=== PATIENT | female | born 1985 | race Caucasian/White ===

== ENCOUNTER 2018-11-19 11:32 | Observation (INO) | payer BC, OTHER ==
[~2018-11-19] VITALS: Ht 160 cm; Wt 97.7 kg
[2018-11-19] VITALS (25 sets, daily range): BP systolic 95–129; BP diastolic 48–72; PULSE 50–93; RESP 11–22; Ht 160 cm; Wt 97.7 kg
[2018-11-19] MEDS ORDERED: SOD CHLORIDE 0.9% 1,000 ML IV STA (12:07)
[2018-11-19] MEDS ORDERED: morphine 4 MG/ML VIAL IV STA (12:07)
[2018-11-19] MEDS ORDERED: ONDANSETRON 4 MG INJ IV STA (12:07)
[2018-11-19] MEDS ORDERED: KETOROLAC 30 MG INJ IV STA (14:38)
[2018-11-19] MEDS ORDERED: ONDANSETRON 4 MG INJ IV PRN ×3 (15:30→18:30)
[2018-11-19] MEDS ORDERED: ACETAMINOPHEN 325 MG TAB PO PRN (15:30)
--- NOTE | 2018-11-19 15:42 | ERD ---
ER Documentation Chief Complaint Chief Complaint RUQ PAIN, HX OF GALL STONES HPI 33-year-old female with a history of gallstones presenting with severe right upper quadrant pain for the past 10 days that has been worsening. She has had symptomatic gallstones for a few months, but her symptoms have significantly worsened recently. She states her pain is always there, causing her to have decreased p.o. intake with nausea and vomiting. No fevers or chills. She smokes marijuana to alleviate the pain. She has been prescribed [place] but does not take it. She has had multiple recent visits to the ER for similar symptoms. Today she went to 's office and was evaluated. She was sent here for possible acute cholecystitis. ROS All systems reviewed and are negative except as per history of present illness. Allergies Allergies: Coded Allergies: No Known Allergy (Unverified , 11/19/18) PMhx/Soc Hx Miscellaneous Medical Probl: Yes (GALLSTONES) FmHx Family History: No diabetes Physical Exam Vitals Vital Signs Date Temp Pulse Resp B/P (MAP) Pulse Ox O2 O2 Flow FiO2 Time Delivery Rate 11/19/18 98.2 71 16 117/70 97 11:51 (86) Physical Exam Const: In distress secondary to pain, nontoxic Head: Atraumatic Eyes: Normal Conjunctiva ENT: Normal External Ears, Nose and Mouth. Neck: Full range of motion. No meningismus. Resp: Clear to auscultation bilaterally Cardio: Regular rate and rhythm, no murmurs Abd: Soft, significant right upper quadrant tenderness to palpation with guarding. No rebound. No masses. No McBurney's point tenderness., non distended. Normal bowel sounds Skin: No petechiae or rashes Back: No midline or flank tenderness Ext: No cyanosis, or edema Neur: Awake and alert Psych: Normal Mood and Affect Result Diagram: 11/19/18 1240 11/19/18 1240 Results 24 hrs Laboratory Tests Test 11/19/18 12:31 11/19/18 12:36 11/19/18 12:40 Urine Color YELLOW Urine Clarity SLIGHTLY CLOUDY Urine pH 6.0 Urine Specific [place] 1.013 Urine Ketones TRACE mg/dL Urine Nitrite NEGATIVE mg/dL Urine Bilirubin NEGATIVE mg/dL Urine Urobilinogen NEGATIVE mg/dL Urine Leukocyte Esterase NEGATIVE Michael/ul Urine Microscopic RBC 1 /HPF Urine Microscopic WBC 1 /HPF Urine Squamous Epithelial Cells FEW /HPF Urine Bacteria MODERATE /HPF Urine Mucus FEW /HPF Urine Hemoglobin NEGATIVE mg/dL Urine Glucose NEGATIVE mg/dL Urine Total Protein NEGATIVE mg/dl POC Beta HCG, Qualitative NEGATIVE White Blood Count 10.5 10^3/ul Red Blood Count 4.77 10^6/ul Hemoglobin 12.7 g/dl Hematocrit 37.9 % Mean Corpuscular Volume 79.5 fl Mean Corpuscular Hemoglobin 26.6 pg Mean Corpuscular 33.5 g/dl Hemoglobin Concent Red Cell Distribution Width 14.6 % Platelet Count 311 10^3/UL Mean Platelet Volume 10.7 fl Immature Granulocytes % 0.400 % Neutrophils % 61.0 % Lymphocytes % 28.0 % Monocytes % 7.6 % Eosinophils % 2.4 % Basophils % 0.6 % Nucleated Red Blood Cells % 0.0 /100WBC Immature Granulocytes # 0.040 10^3/ul Neutrophils # 6.4 10^3/ul Lymphocytes # 3.0 10^3/ul Monocytes # 0.8 10^3/ul Eosinophils # 0.3 10^3/ul Basophils # 0.1 10^3/ul Nucleated Red Blood Cells # 0.0 10^3/ul Sodium Level 142 mmol/L Potassium Level 3.7 mmol/L Chloride Level 104 mmol/L Carbon Dioxide Level 32 mmol/L Anion Gap 6 Blood Urea Nitrogen 7 mg/dl Creatinine 0.56 mg/dl Est Glomerular Filtrat > 60 mL/min Rate mL/min Glucose Level 98 mg/dl Calcium Level 9.2 mg/dl Total Bilirubin 0.1 mg/dl Direct Bilirubin 0.00 mg/dl Indirect Bilirubin 0.1 mg/dl Aspartate Amino 26 IU/L Transf (AST/SGOT) Alanine 34 IU/L Aminotransferase (ALT/SGPT) Alkaline Phosphatase 94 IU/L Total Protein 7.5 g/dl Albumin 4.3 g/dl Globulin 3.20 g/dl Albumin/Globulin Ratio 1.34 Lipase 47 U/L Current Medications Medications Dose Sig/Mary Jane Start Time Status Last (Trade) Ordered Route PRN Stop Time Admin Dose Reason Admin Sodium 1,000 ml @ Q1H STAT 11/19/18 DC 11/19/18 Chloride 1,000 mls/hr IV 12:07 12:38 11/19/18 13:06 Morphine 4 mg ONCE STAT 11/19/18 DC 11/19/18 Sulfate IV 12:07 12:38 (morphine) 11/19/18 12:09 Ondansetron 4 mg ONCE STAT 11/19/18 DC 11/19/18 HCl (Zofran IV 12:07 12:38 Inj) 11/19/18 12:09 Ketorolac 30 mg ONCE STAT 11/19/18 DC 11/19/18 Tromethamine IV 14:38 14:43 (Toradol) 11/19/18 14:39 Ondansetron 4 mg BRIDGE ORDER 11/19/18 HCl (Zofran PRN IV 15:30 Inj) NAUSEA/VOMITI 11/20/18 15:29 NG 650 mg ER BRIDGE 11/19/18 Acetaminophen PRN PO 15:30 (Tylenol .MILD PAIN 11/20/18 15:29 Tab) 1-3 OR TEMP Procedures/MDM EMERGENT LABS AND DIAGNOSTIC STUDIES: Lab Results above were reviewed and interpreted by me. CBC: no anemia or evidence of infection CMP: No evidence of electrolyte abnormality, renal failure, hypoglycemia, liver failure, or biliary obstruction Lipase: no evidence of pancreatitis Radiology Results as interpreted by Radiology below were reviewed by Usha Castro MD: Ultrasound gallbladder shows no evidence of acute cholecystitis or biliary obstruction Initial Nursing notes reviewed. Previous Medical Records requested via the Electronic Health Record. EMERGENCY DEPARTMENT COURSE / MEDICAL DECISION MAKING: Patient presenting with symptomatic cholelithiasis versus acute cholecystitis by exam. She is afebrile with stable vitals. Labs did not show any significant abnormalities. Low suspicion for choledocholithiasis but this does remain on differential. No evidence of pancreatitis. She was given pain medications with only minimal improvement of her pain. I feel the patient requires admission for cholecystectomy as her symptoms are worsening and not controlled. Accepting Care Team: Current data and ongoing care discussed. Time: Time of admission Primary Provider: Dr. Ellis Consulting: Dr. Jackson Outstanding Data: none Departure Diagnosis: Primary Impression: Symptomatic cholelithiasis Additional Impression: Intractable abdominal pain Condition: DILCIA Thornton MD Nov 19, 2018 15:42
[2018-11-19] MEDS ORDERED: SOD CHLORIDE 0.9% 1,000 ML IV SCH (15:52)
[2018-11-19] MEDS ORDERED: NACL 0.9% 3 ML SYG IV SCH (16:00)
[2018-11-19] MEDS ORDERED: morphine 4 MG/ML VIAL IV PRN (16:00)
--- NOTE | 2018-11-19 16:17 | HP ---
Date/Time of Note Date/Time of Note DATE: 11/19/18 TIME: 16:08 Assessment/Plan VTE Prophylaxis Pharmacological prophylaxis: NA/contraindicated Pharm contraindication: surgical contra Lines/Catheters IV Catheter Type (from Nrsg): Peripheral IV Assessment/Plan Assessment/Plan 33 yo obese woman no major PMH presents with symptomatic cholelithiasis #Cholelithiasis #Abdominal pain #PO intolerance - Symptoms likely due to symptomatic cholelithiasis with possible chronic cholecystitis - Less likely nephrolithiasis (UA bland), pancreatitis (negative lipase) - Agree with lap vs open cholecystectomy. Dr. Jackson consulted. - NPO, IV fluids, opioid analgesics - Despite her size, patient reports ability to exercise >4 METS without angina or dyspnea - She is medically optimized to proceed to surgery with no further cardiac workup. #Hematemesis #Hematochezia - Per history, these likely represent rebeka-jorge tears from excessive vomiting and hemorrhoids/anal fissues, respectively - Will check iron panel - Very low suspicion for occult GI bleed. Will not pursue further workup at this time. #Dysuria - UA negative for leuk esterase or nitrates Result Diagram: 11/19/18 1240 11/19/18 1240 HPI/ROS Admit Date/Time Admit Date/Time Nov 19, 2018 Hx of Present Illness Ms. Sampson is an obese 33 yo woman who presents with acute on chronic abdominal pain. Symptoms started about 2 months ago with aching RUQ pain, worsening with meals, rarely associated with nausea and vomiting. She went to the [facility] emergency department and was diagnosed with symptomatic cholelithiasis and she was instructed to get outpatient surgery. Since then she has struggled to get i nsurance authorization for the surgery. The pain has continued. She has been smoking medical cannabis to control the pain; does not like [place]. For about the past two weeks she reports almost total PO intolerance to solids and liquids with frequent vomiting. The pain now radiates from the RUQ to the R flank and R back. She says it feels like contractions similar to labor. She reports 20 lbs weight loss during this time. She reports dehydration and severe constipation during this time. Last bowel movement was 3 days ago, rock hard, and had some bright red blood afterwards. Also had several episodes of emesis on Saturday about 3 days ago. Last episode of emesis was slightly blood-streaked. Also reports occasional burning dysuria over the past few days. Of note, she had a miscarriage several months before symptoms began. She does run 5ks and denies any dyspnea or angina on exertion prior to the onset of above symptoms. In the ED she presented afebrile, vitals unremarkable. Labs unremarkable. US showed cholelithiasis without e/o cholecystitis. ROS Denies fever, chills, night sweats, fatigue, headache, vision changes, chest pain/pressure/palpitations, dyspnea, cough, diarrhea, hematuria. PMH/Family/Social Past Medical History Anxiety with panic attacks. Medications Current Medications Ondansetron HCl (Zofran Inj) 4 mg BRIDGE ORDER PRN IV NAUSEA/VOMITING; Start 11/19/18 at 15:30; Stop 11/20/18 at 15:29 Acetaminophen (Tylenol Tab) 650 mg ER BRIDGE PRN PO .MILD PAIN 1-3 OR TEMP; Start 11/19/18 at 15:30; Stop 11/20/18 at 15:29 Sodium Chloride 1,000 ml @ 75 mls/hr [id number] IV ; Start 11/19/18 at 15:52 IV Flush (NS 3 ml) 3 ml PER PROTOCOL IV ; Start 11/19/18 at 16:00 Ondansetron HCl (Zofran Inj) 4 mg Q6H PRN IV NAUSEA/VOMITING; Start 11/19/18 at 16:00 Morphine Sulfate (morphine) 4 mg Q4H PRN IV .SEVERE PAIN 7-10; Start 11/19/18 at 16:00 Pantoprazole (Protonix Iv) 40 mg DAILY@06 IV ; Start 11/20/18 at 06:00 Coded Allergies: No Known Allergy (Unverified , 11/19/18) Past Surgical History Appendectomy in in 2017 colonoscopy and EGD 10-12 years ago for "bowel problems" and GERD. Social History Alcohol Use: occasionally Smoking Status: Never smoker Drug Use: marijuana (daily) Exam/Review of Systems Vital Signs Vitals Vital Signs Date Temp Pulse Resp B/P (MAP) Pulse Ox O2 O2 Flow FiO2 Time Delivery Rate 11/19/18 98.2 71 16 117/70 97 11:51 (86) Exam Exam Gen: Obese woman well groomed in considerable discomfort. Eyes: PERRL, no icterus HEENT: Moist mucous membranes, no pharyngeal erythema Neck: Mildly anterior tender to palpation Card: Regular rate and rhythm, no murmurs Pulm: Clear to auscultation bilaterally Abd: Obese, soft, epigastric and RUQ tenderness to moderate palpation, positive montelongo's sign, no rebound tenderness Back: Bilateral CVA nontender to palpation. Ext: No cyanosis/clubbing/edema Skin: warm, dry, well perfused. EDEL HARDING MD Nov 19, 2018 16:17
--- NOTE | 2018-11-19 16:33 | PREAC ---
Date/Time of Note Date/Time of Note DATE: 11/19/18 TIME: 16:32 Anesthesia Eval and Record Evaluation Time Pre-Procedure Interview DATE: 11/19/18 TIME: 16:32 Age 33 Sex female NPO: 8 hrs Preoperative diagnosis cholelithiasis Planned procedure laparoscopic cholecystectomy Past Medical History Past Medical History: Includes GI: Obesity Surgery & Anesthesia Issues No known issue Meds Anticoagulation: No Beta Nicholas within 24 hr: No Reason Beta Nicholas not given: Pt. not on B-Nicholas Current Medications Ondansetron HCl (Zofran Inj) 4 mg BRIDGE ORDER PRN IV NAUSEA/VOMITING; Start 11/19/18 at 15:30; Stop 11/20/18 at 15:29 Acetaminophen (Tylenol Tab) 650 mg ER BRIDGE PRN PO .MILD PAIN 1-3 OR TEMP; Start 11/19/18 at 15:30; Stop 11/20/18 at 15:29 Sodium Chloride 1,000 ml @ 75 mls/hr [id number] IV Last administered on 11/19/18at 16:20; Admin Dose 75 MLS/HR; Start 11/19/18 at 15:52 IV Flush (NS 3 ml) 3 ml PER PROTOCOL IV ; Start 11/19/18 at 16:00 Ondansetron HCl (Zofran Inj) 4 mg Q6H PRN IV NAUSEA/VOMITING; Start 11/19/18 at 16:00 Morphine Sulfate (morphine) 4 mg Q4H PRN IV .SEVERE PAIN 7-10; Start 11/19/18 at 16:00 Pantoprazole (Protonix Iv) 40 mg DAILY@06 IV ; Start 11/20/18 at 06:00 Meds reviewed: Yes Allergies Coded Allergies: No Known Allergy (Unverified , 11/19/18) Allergies Reviewed: Yes Labs/Studies Labs Reviewed: Reviewed by anesthesiologist Result Diagram: 11/19/18 1240 11/19/18 1240 Laboratory Tests 11/19/18 12:40 test: Negative Pre-procedure Exam Last vitals Vital Signs Date Temp Pulse Resp B/P (MAP) Pulse Ox O2 O2 Flow FiO2 Time Delivery Rate 11/19/18 99.4 83 16 114/72 98 Room Air 16:28 (86) Airway: Adequate mouth opening, Adequate thyromental dist Mallampati: Mallampati II Teeth: Normal Lung: Normal Heart: Normal ASA Physical Status ASA physical status: 2 Emergency: None Planned Anesthetic General/MAC: ETT Nerve block: TAP (bilateral) Planned Pain Management Single shot nerve block, Parenteral pain med Pre-operative Attestations Prior to commencing anesthesia and surgery, the patient was re-evaluated, there was verification of: *The patient's identity *The results of appropriate recent lab work and preoperative vital signs *The above evaluation not changing prior to induction *Anesthetic plan, risk benefits, alternative and complications discussed with patient/family; questions answered; patient/family understands, accepts and wishes to proceed. ROSE MARY MOODY MD Nov 19, 2018 16:33
[2018-11-19] MEDS ORDERED: BUPIVACAINE 0.5%/EPI (SDV) 30 ML INJ ONE (16:52)
[2018-11-19] MEDS ORDERED: LIDOCAINE 2% (MDV) 20 ML INJ ONE (16:52)
[2018-11-19] MEDS ORDERED: MIDAZOLAM 1 MG/ML 2 ML INJ ONE (16:53)
[2018-11-19] MEDS ORDERED: ROCURONIUM 50 MG INJ ONE ×2 (16:54→17:32)
[2018-11-19] MEDS ORDERED: LIDOCAINE 2% (SDV) 5 ML INJ ONE (16:54)
[2018-11-19] MEDS ORDERED: SUCCINYLCHOLINE CHLORIDE 100 MG/5 ML SYG IV ONE (16:54)
[2018-11-19] MEDS ORDERED: ROPIVACAINE 0.5 % 30 ML VIAL ONE (16:54)
[2018-11-19] MEDS ORDERED: FENTAnyl 50 MCG/ML VIAL ONE (16:54)
[2018-11-19] MEDS ORDERED: PROPOFOL 20 ML ONE (16:54)
--- NOTE | 2018-11-19 17:09 | CONS ---
Assessment/Plan Assessment/Plan Assessment/Plan (Daily) Recurrent symptomatic cholelithiasis, possible cholecystitis Discussed proceeding with laparoscopic cholecystectomy, possible open, possible cholangiogram on this admission. Benefits, risks, alternatives discussed in detail. All questions answered. The patient elects to proceed. Consultation Date/Type/Reason Admit Date/Time Nov 19, 2018 Date of Consultation: Nov 19, 2018 Date/Time of Note DATE: 11/19/18 TIME: 17:07 Hx of Present Illness The patient is a 33-year-old female with recurrent attacks of epigastric pain associated with nausea and emesis. Her pain radiates to the back. She has had approximately 5 attacks since her in 2017. She presented to the surgeon's office today with significant symptoms. She was sent to the ER. Patient states she has had a minor fever. She has been recommended to have her gallbladder out in the past. She had a tach starting before but they stopped during her . 14 point review of systems was performed. Pertinent negatives and positives per HPI per Past Medical History Medical History: GERD Medications Current Medications Ondansetron HCl (Zofran Inj) 4 mg BRIDGE ORDER PRN IV NAUSEA/VOMITING; Start 11/19/18 at 15:30; Stop 11/20/18 at 15:29 Acetaminophen (Tylenol Tab) 650 mg ER BRIDGE PRN PO .MILD PAIN 1-3 OR TEMP; Start 11/19/18 at 15:30; Stop 11/20/18 at 15:29 Sodium Chloride 1,000 ml @ 75 mls/hr [id number] IV Last administered on 11/19/18at 16:20; Admin Dose 75 MLS/HR; Start 11/19/18 at 15:52 IV Flush (NS 3 ml) 3 ml PER PROTOCOL IV ; Start 11/19/18 at 16:00 Ondansetron HCl (Zofran Inj) 4 mg Q6H PRN IV NAUSEA/VOMITING; Start 11/19/18 at 16:00 Morphine Sulfate (morphine) 4 mg Q4H PRN IV .SEVERE PAIN 7-10; Start 11/19/18 at 16:00 Pantoprazole (Protonix Iv) 40 mg DAILY@06 IV ; Start 11/20/18 at 06:00 Allergies: Coded Allergies: No Known Allergy (Unverified , 11/19/18) Past Surgical History Past Surgical Hx: other () Family History Significant Family History: no pertinent family hx Social History Alcohol Use: occasionally Smoking Status: Never smoker Drug Use: marijuana (daily) Exam/Review of Systems Exam Vitals Vital Signs Date Temp Pulse Resp B/P (MAP) Pulse Ox O2 O2 Flow FiO2 Time Delivery Rate 11/19/18 99.4 83 16 114/72 98 Room Air 16:28 (86) Constitutional: alert, oriented, well developed, obese Psych: no complaints Head: normocephalic Eyes: nl conjunctiva, nl lids ENMT: nl external ears & nose, nl lips & teeth Neck: supple Respiratory: clear to auscultation Cardiovascular: regular rate and rhythm Gastrointestinal: soft, other (Nondistended, some epigastric tenderness) Musculoskeletal: nl extremities to inspection Extremities: normal pulses Neurological: INSPECTOR GLASS OR MIRROR II-XII intact, nl mental status, nl speech Skin: nl turgor Lymph: nl lymph nodes Results Result Diagram: 11/19/18 1240 11/19/18 1240 Results 24hrs Laboratory Tests Test 11/19/18 12:31 11/19/18 12:36 11/19/18 12:40 Urine Color YELLOW Urine Clarity SLIGHTLY CLOUDY A Urine pH 6.0 Urine Specific [place] 1.013 Urine Ketones TRACE A Urine Nitrite NEGATIVE Urine Bilirubin NEGATIVE Urine Urobilinogen NEGATIVE Urine Leukocyte Esterase NEGATIVE Urine Microscopic RBC 1 Urine Microscopic WBC 1 Urine Squamous FEW Epithelial Cells Urine Bacteria MODERATE Urine Mucus FEW A Urine Hemoglobin NEGATIVE Urine Glucose NEGATIVE Urine Total Protein NEGATIVE POC Beta HCG, Qualitative NEGATIVE White Blood Count 10.5 Red Blood Count 4.77 Hemoglobin 12.7 Hematocrit 37.9 Mean Corpuscular Volume 79.5 L Mean Corpuscular Hemoglobin 26.6 L Mean Corpuscular 33.5 Hemoglobin Concent Red Cell Distribution Width 14.6 H Platelet Count 311 Mean Platelet Volume 10.7 H Immature Granulocytes % 0.400 Neutrophils % 61.0 Lymphocytes % 28.0 Monocytes % 7.6 Eosinophils % 2.4 Basophils % 0.6 Nucleated Red Blood Cells % 0.0 Immature Granulocytes # 0.040 H Neutrophils # 6.4 Lymphocytes # 3.0 H Monocytes # 0.8 Eosinophils # 0.3 Basophils # 0.1 Nucleated Red Blood Cells # 0.0 Sodium Level 142 Potassium Level 3.7 Chloride Level 104 Carbon Dioxide Level 32 H Anion Gap 6 Blood Urea Nitrogen 7 Creatinine 0.56 Est Glomerular Filtrat > 60 Rate mL/min Glucose Level 98 Calcium Level 9.2 Total Bilirubin 0.1 L Direct Bilirubin 0.00 Indirect Bilirubin 0.1 Aspartate Amino 26 Transf (AST/SGOT) Alanine 34 Aminotransferase (ALT/SGPT) Alkaline Phosphatase 94 Total Protein 7.5 Albumin 4.3 Globulin 3.20 Albumin/Globulin Ratio 1.34 Lipase 47 Imaging Imaging Patient: SAGRARIO GONZALEZ : 1985 Age: 33 Sex: F [id number] DOS: 11/19/18 0000 Ordering MD: VITOR SHARP PA-C Location: [facility] Room/Bed: PROCEDURE: Right upper quadrant ultrasound CLINICAL INDICATION: Abdominal pain TECHNIQUE: Multiple real-time images were acquired of the patient's abdomen and right retroperitoneum utilizing a high resolution transducer. COMPARISON: None FINDINGS: The liver is normal in echogenicity and measures 15.1 cm. No focal hepatic masses are seen. The gallbladder is physiologically distended. There are multiple calcified gallstones. There is no gallbladder wall thickening or pericholecystic fluid. The intra and extrahepatic bile ducts are normal in caliber. The common bile duct measures 2.7 mm. Pancreas and aorta are not visualized due to overlying bowel gas. Survey views of the right kidney demonstrate no evidence of hydronephrosis or renal calculi. The right kidney measures 10.9 cm. IMPRESSION: 1. Cholelithiasis without evidence of acute cholecystitis RPTAT: HH .Jono Fierro MD, MD Date Time Electronically viewed and signed by .Jono Fierro MD, MD on 11/19/2018 13:16 .W/ CC: PA SHARP PA-C [id number] Medications Medication Current Medications Ondansetron HCl (Zofran Inj) 4 mg BRIDGE ORDER PRN IV NAUSEA/VOMITING; Start 11/19/18 at 15:30; Stop 11/20/18 at 15:29 Acetaminophen (Tylenol Tab) 650 mg ER BRIDGE PRN PO .MILD PAIN 1-3 OR TEMP; Start 11/19/18 at 15:30; Stop 11/20/18 at 15:29 Sodium Chloride 1,000 ml @ 75 mls/hr [id number] IV Last administered on 11/19/18at 16:20; Admin Dose 75 MLS/HR; Start 11/19/18 at 15:52 IV Flush (NS 3 ml) 3 ml PER PROTOCOL IV ; Start 11/19/18 at 16:00 Ondansetron HCl (Zofran Inj) 4 mg Q6H PRN IV NAUSEA/VOMITING; Start 11/19/18 at 16:00 Morphine Sulfate (morphine) 4 mg Q4H PRN IV .SEVERE PAIN 7-10; Start 11/19/18 at 16:00 Pantoprazole (Protonix Iv) 40 mg DAILY@06 IV ; Start 11/20/18 at 06:00 TRISTAN PINEDO MD Nov 19, 2018 17:09
--- NOTE | 2018-11-19 17:12 | OPR ---
Date/Time of Note Date/Time of Note DATE: 11/19/18 TIME: 17:10 Operative Report Preoperative Diagnosis Cholelithiasis, symptomatic Postoperative Diagnosis Same Operation/Procedure Performed Laparoscopic cholecystectomy Surgeon see signature line [employer] [employer] [place] None Anesthesia Type: general Anesthesiologist: ROSE MARY MOODY MD Estimated Blood Loss: minimal Transfusion none Specimen Gallbladder Grafts/Implants none Complications none Pt Condition Post Procedure: stable Disposition: PACU Indications The patient is a 33-year-old female with recurrent symptomatic cholelithiasis. Ultrasound revealed stones. Normal LFTs She has had prior visits to the ER for similar symptoms. I discussed proceeding with a laparoscopic, possible open, cholecystectomy, possible cholangiogram. All benefits, risks, alternatives discussed in detail. All questions were answered. The patient elects to proceed. Procedure Description The patient was brought to operative room placed supine on the table. After preop antibiotics and SCDs were applied, the patient was intubated. The abdomen was cleaned, prepped, draped in usual sterile fashion. All incisions were infiltrated with 1% lidocaine with epi and half percent Marcaine prior to incision. An 11 mm incision was made in the umbilicus. Using a laparoscope obtained trocar, the abdomen was entered under direct vision insufflated 50 mils of mercury CO2. The following trochars in place direct vision: The right lower quadrant 5 mm, a right upper quadrant 5 mm, and a subxiphoid 5 mm. The 5 mm umbilical trocar was exchanged 11 mm and direct vision. The gallbladder was grasped at the fundus and retracted over the liver. There were omental adhesions attached to the gallbladder which were dissected free with electrocautery. I identified Chidi's pouch. The peritoneum underneath Ramesh's was scored medially and laterally. I was then able to dissect out and skeletonized the cystic duct and artery. I dissected the gallbladder off the cystic plate of the liver. I now had my critical view of safety where I saw my duct and artery with no intervening structures. The duct and artery were then clipped twice proximally and once distally individually and divided. The gallbladder was then removed from the gallbladder fossa with electrocautery and placed in Endo Catch bag. I irrigated and aspirated out the right upper quadrant until effluent was clear. I visualized the gallbladder fossa. It was hemostatic. There was no evidence of bleeding or bile staining. At this point, I desufflated the abdomen and removed all trochars. The fascia of the 12 mm trocar site was closed with 0 Vicryl. Skin incisions were closed for Monocryl, Mastisol, and Steri-Strips. A 2 x 2 gauze and Tegaderm was placed over the umbilicus region only. The patient tired procedure well. She was extubated in the OR and transferred to the recovery room in stable condition. TRISTAN PINEDO MD Nov 19, 2018 17:12
--- NOTE | 2018-11-19 17:12 | SIPON ---
Date/Time of Note Date/Time of Note DATE: 11/19/18 TIME: 17:12 Operative Report Preoperative Diagnosis Symptomatic cholelithiasis Postoperative Diagnosis Same Operation/Procedure Performed Laparoscopic cholecystectomy Surgeon see signature line residential living assistant None Anesthesia: general Estimated blood loss: minimal Transfusion Required none Specimen Gallbladder Grafts/Implants none Complications none TRISTAN PINEDO MD Nov 19, 2018 17:12
[2018-11-19] MEDS ORDERED: FAMOTIDINE 20 MG INJ ONE (17:28)
[2018-11-19] MEDS ORDERED: CEFAZOLIN 1 GM INJ ONE (17:28)
[2018-11-19] MEDS ORDERED: DEXAMETHASONE 4 MG/ML 5 ML INJ ONE (17:28)
[2018-11-19] MEDS ORDERED: ONDANSETRON 4 MG INJ ONE (17:28)
[2018-11-19] MEDS ORDERED: KETOROLAC 30 MG INJ ONE (17:52)
[2018-11-19] MEDS ORDERED: SUGAMMADEX SODIUM 200 MG/2 ML VIAL IV ONE ×2 (17:54→18:10)
[2018-11-19] MEDS ORDERED: HYDROmorphONE 1 MG/5 ML IV SYRINGE IV ONE ×2 (18:20→18:27)
--- NOTE | 2018-11-19 18:24 | PAC ---
Date/Time of Note Date/Time of Note DATE: 11/19/18 TIME: 18:20 Post-Anesthesia Notes Post-Anesthesia Note Last documented vital signs Vital Signs Date Temp Pulse Resp B/P (MAP) Pulse Ox O2 O2 Flow FiO2 Time Delivery Rate 11/19/18 99.4 83 16 114/72 98 Room Air 16:28 (86) Activity: WNL Respiratory function: WNL Cardiovascular function: WNL Mental status: Baseline Pain reasonably controlled: Yes Hydration appropriate: Yes Nausea/Vomiting absent: Yes Comments BP: 115/74 HR: 84 RR: 15 SaO2: 100% T: 98 ROSE MARY MOODY MD Nov 19, 2018 18:24
[2018-11-19] MEDS ORDERED: FENTAnyl 50 MCG/ML VIAL IV PRN ×3 (18:30)
[2018-11-19] MEDS ORDERED: MEPERIDINE 25 MG INJ IV PRN (18:30)
[2018-11-19] MEDS ORDERED: OXYCODONE/ACETAMINOPHEN (5/325) TAB PO PRN ×2 (18:30)
[2018-11-19] MEDS ORDERED: LABETALOL HCL 20MG INJ IV PRN (18:30)
[2018-11-19] MEDS ORDERED: HYDROmorphONE 1 MG/5 ML IV SYRINGE IV PRN ×2 (18:30)
[2018-11-19] MEDS ORDERED: hydrALAzine 20 MG INJ IV PRN (18:30)
[2018-11-19] MEDS ORDERED: PROCHLORPERAZINE 10 MG INJ IV PRN (18:30)
[2018-11-19] MEDS ORDERED: MIDAZOLAM 1 MG/ML 2 ML INJ IV PRN (18:30)
[2018-11-19] MEDS ORDERED: DIPHENHYDRAMINE 50 MG INJ IV PRN (18:30)
[2018-11-19] MEDS ORDERED: EPHEDrine SULFATE 50 MG/5 ML SYG IV PRN (18:30)
[2018-11-19] MEDS: HYDROmorphONE 1 MG/5 ML IV SYRINGE IV PRN ×3 (19:31→19:45)
[2018-11-20] MEDS ORDERED: PANTOPRAZOLE 40 MG INJ IV SCH (06:00)
--- NOTE | 2018-11-20 15:53 | DS ---
Date/Time of Note Date/Time of Note DATE: 11/20/18 TIME: 15:49 Discharge Summary Admission/Discharge Info Admit Date/Time Nov 19, 2018 at 15:20 Discharge Date/Time Nov 19, 2018 at 20:23 Discharge Diagnosis Symptomatic cholelithiasis Patient Condition: Good Consults Dr. Jackson, general surgery. Procedures Laparoscopic cholecystectomy Hx of Present Illness Ms. Sampson is an obese 33 yo woman who presents with acute on chronic abdominal pain. Symptoms started about 2 months ago with aching RUQ pain, worsening with meals, rarely associated with nausea and vomiting. She went to the [place] emergency department and was diagnosed with symptomatic cholelithiasis and she was instructed to get outpatient surgery. Since then she has struggled to get insurance authorization for the surgery. The pain has continued. She has been smoking medical cannabis to control the pain; does not like [place]. For about the past two weeks she reports almost total PO intolerance to solids and liquids with frequent vomiting. The pain now radiates from the RUQ to the R flank and R back. She says it feels like contractions similar to labor. She reports 20 lbs weight loss during this time. She reports dehydration and severe constipation during this time. Last bowel movement was 3 days ago, rock hard, and had some bright red blood afterwards. Also had several episodes of emesis on Saturday about 3 days ago. Last episode of emesis was slightly blood-streaked. Also reports occasional burning dysuria over the past few days. Of note, she had a miscarriage several months before symptoms began. She does run 5ks and denies any dyspnea or angina on exertion prior to the onset of above symptoms. In the ED she presented afebrile, vitals unremarkable. Labs unremarkable. US showed cholelithiasis without e/o cholecystitis. Hospital Course She was taken to the OR for lap ijeoma which was uneventful. Postoperative she was awake and doing well. She was discharged home from the PACU in good condition. Primary Care Provider Not On Staff Doctor Time spent on discharge: > 30 minutes EDEL HARDING MD Nov 20, 2018 15:53
== END 2018-11-19 20:23 | disposition home or self-care (01) ==
LOC: FTE 11:32 → REC 15:20 → UNDOADMOB 15:20 → FTE 16:30
PROVIDERS: ADMIT Internal Medicine; ATTEND Internal Medicine
DX: K80.10 Calculus of gallbladder with chronic cholecystitis without obstruction (principal); K92.0 Hematemesis; R30.0 Dysuria; K21.9 Gastro-esophageal reflux disease without esophagitis
CPT/HCPCS: 47562; 76705; 80053; 81001; 81025; 83690; 85025; 88304; C9113; G0378; J0690; J0780; J1170; J1885; J2250; J2270; J2405; J2795; J3010; J7030; 81003; 96361; 96374; 96375; J1100

== ENCOUNTER 2018-11-23 03:35 | Inpatient (IN) | payer OTHER ==
[~2018-11-23] VITALS: Ht 165.1 cm; Wt 96.5 kg
[2018-11-23] MEDS ORDERED: NACL 0.9% 3 ML SYG IV SCH (07:30)
[2018-11-23] MEDS ORDERED: ACETAMINOPHEN 325 MG TAB PO PRN (07:30)
[2018-11-23] MEDS ORDERED: ONDANSETRON 4 MG TAB PO PRN (07:30)
[2018-11-23] MEDS: morphine 2 MG INJ IV PRN ×4 (07:44→19:45)
[2018-11-23 08:00] VITALS: BP 113/69; PULSE 63; RESP 18
[2018-11-23] MEDS: SOD CHLORIDE 0.9% 1,000 ML IV SCH ×2 (08:25→20:35)
--- NOTE | 2018-11-23 09:14 | CONS ---
Assessment/Plan Assessment/Plan Assessment/Plan (Daily) Abdominal wall hematoma status post lap ijeoma Hemodynamically stable H&H this afternoon and then later this evening. Check PT /PTT today CT scan reviewed. There is some fluid in the gallbladder fossa but this is small. Drop in hematocrit is more likely related to abdominal wall hematoma. Bleeding is likely stopped based on hemodynamic stability. Consultation Date/Type/Reason Admit Date/Time Nov 23, 2018 at 07:08 Date/Time of Note DATE: 11/23/18 TIME: 09:12 Hx of Present Illness The patient is a 33-year-old female status post uncomplicated laparoscopic cholecystectomy on November 19. She was discharged home on day of surgery. She had been doing well until Saturday morning where she noticed a lot of swell ing and discoloration around her bellybutton. She was also concerned about some drainage. She presented to the ER at [facility]. Her hemoglobin was [address] showed some fluid in the gallbladder fossa, most likely representing hematoma. She was transferred back to [facility]. Past Medical History Medical History: GERD, other (Morbid obesity) Medications Current Medications Sodium Chloride 1,000 ml @ 75 mls/hr [id number] IV Last administered on 11/23/18at 08:25; Admin Dose 75 MLS/HR; Start 11/23/18 at 07:15 IV Flush (NS 3 ml) 3 ml PER PROTOCOL IV ; Start 11/23/18 at 07:30 Ondansetron HCl (Zofran Tab) 4 mg Q6H PRN PO NAUSEA/VOMITING; Start 11/23/18 at 07:30 Acetaminophen (Tylenol Tab) 650 mg Q6H PRN PO .PAIN 1-3 OR TEMP; Start 11/23/18 at 07:30 Morphine Sulfate (morphine) 2 mg Q4H PRN IV .SEVERE PAIN 7-10 Last administered on 11/23/18at 07:44; Admin Dose 2 MG; Start 11/23/18 at 07:30 Allergies: Coded Allergies: No Known Allergy (Unverified , 11/23/18) Past Surgical History Past Surgical Hx: other Social History Alcohol Use: rarely Smoking Status: Never smoker Exam/Review of Systems Exam Vitals Vital Signs Date Temp Pulse Resp B/P (MAP) Pulse Ox O2 O2 Flow FiO2 Time Delivery Rate 11/23/18 98.1 63 18 113/69 99 Room Air 08:00 (84) Constitutional: alert, oriented, well developed Head: normocephalic, atraumatic Eyes: nl conjunctiva, EOMI, nl lids ENMT: nl external ears & nose Neck: supple, non-tender Respiratory: clear to auscultation, normal air movement Cardiovascular: regular rate and rhythm, nl pulses Gastrointestinal: soft, other (, Nondistended, some tenderness and ecchymosis around umbilical incision site.) Extremities: normal pulses Neurological: RELINER II-XII intact, nl mental status, nl speech, nl strength Skin: nl turgor Results Result Diagram: 11/23/18 0745 11/23/18 0745 Results 24hrs Laboratory Tests Test 11/23/18 07:45 White Blood Count 9.3 Red Blood Count 2.79 #L Hemoglobin 7.6 #L Hematocrit 22.8 #L Mean Corpuscular Volume 81.7 L Mean Corpuscular Hemoglobin 27.2 L Mean Corpuscular Hemoglobin Concent 33.3 Red Cell Distribution Width 14.7 H Platelet Count 228 # Mean Platelet Volume 11.4 H Immature Granulocytes % 0.500 H Neutrophils % 71.1 Lymphocytes % 17.8 Monocytes % 7.9 Eosinophils % 2.2 Basophils % 0.5 Nucleated Red Blood Cells % 0.0 Immature Granulocytes # 0.050 H Neutrophils # 6.6 Lymphocytes # 1.7 Monocytes # 0.7 Eosinophils # 0.2 Basophils # 0.1 Nucleated Red Blood Cells # 0.0 Prothrombin Time 13.5 Prothrombin Time Ratio 1.1 INR International Normalized Ratio 1.02 Activated Partial Thromboplast Time 30.9 Sodium Level 140 Potassium Level 3.0 L Chloride Level 111 H Carbon Dioxide Level 19 L Anion Gap 10 Blood Urea Nitrogen 5 L Creatinine 0.47 Est Glomerular Filtrat Rate mL/min > 60 Glucose Level 91 Calcium Level 8.2 L Total Bilirubin 0.3 Direct Bilirubin 0.00 Indirect Bilirubin 0.3 Aspartate Amino Transf (AST/SGOT) 44 Alanine Aminotransferase (ALT/SGPT) 44 Alkaline Phosphatase 99 Total Protein 6.4 Albumin 3.6 Globulin 2.80 Albumin/Globulin Ratio 1.28 Medications Medication Current Medications Sodium Chloride 1,000 ml @ 75 mls/hr [id number] IV Last administered on 11/23/18at 08:25; Admin Dose 75 MLS/HR; Start 11/23/18 at 07:15 IV Flush (NS 3 ml) 3 ml PER PROTOCOL IV ; Start 11/23/18 at 07:30 Ondansetron HCl (Zofran Tab) 4 mg Q6H PRN PO NAUSEA/VOMITING; Start 11/23/18 at 07:30 Acetaminophen (Tylenol Tab) 650 mg Q6H PRN PO .PAIN 1-3 OR TEMP; Start 11/23/18 at 07:30 Morphine Sulfate (morphine) 2 mg Q4H PRN IV .SEVERE PAIN 7-10 Last administered on 11/23/18at 07:44; Admin Dose 2 MG; Start 11/23/18 at 07:30 TRISTAN PINEDO MD Nov 23, 2018 09:14
[2018-11-23 10:00] VITALS: Ht 165.1 cm; Wt 96.5 kg
--- NOTE | 2018-11-23 10:28 | HP ---
Date/Time of Note Date/Time of Note DATE: 11/23/18 TIME: 10:07 Assessment/Plan VTE Prophylaxis SCD applied (from Nsg): Yes Pharmacological prophylaxis: NA/contraindicated Pharm contraindication: bleeding Assessment/Plan Assessment/Plan 33 yo obese woman no major PMH presents with postoperative hematoma and anemia after lap ijeoma. #Postoperative hematoma - s/p lap ijeoma by Dr. Jackson on 11/19 - CT at [facility] showed gallbladder fossa hematoma - Will closely monitor H+H - Likely will not require operative drainage. In case Hgb keep dropping will consider angiogram and/or IR embolization. - [place], morphine prn pain. - No anticoag #Anemia - Patient denies hematochezia, hematemesis, melena. Last menses Oct 27, no vag bleed since then. - Transfuse for Hgb<7 or symptomatic anemia. DVT: SCDs GI: None Result Diagram: 11/23/1845 11/23/1845 HPI/ROS Admit Date/Time Admit Date/Time Nov 23, 2018 at 07:08 Hx of Present Illness Ms. Sampson is an obese 33 yo woman s/p recent lap cholecystectomy transferred from OSH for worsening abdominal pain, bruising, and anemia. Symptoms started about 2 months ago with aching RUQ pain, worsening with meals, rarely associated with nausea and vomiting. She went to the [place] emergency department and was diagnosed with symptomatic cholelithiasis and she was instructed to get outpatient surgery. She struggled to get insurance authorization for surgery until this past Sunday 11/19 when she was admitted to [facility] and got lap ijeoma by Dr. Jackson. She was discharged from PACU after surgery. Since surgery she's been taking Colace and Meloxicam BID as prescribed as well as Percocet prn. She's had poor appetite and once daily episodes of small volume nonbloody bilious emesis. She continues to have moderate aching abdominal pain, worse with deep breaths, cough, and hiccups. She is passing firm, brown nonbloody bowel movements. She has been keeping her surgical incisions clean and dry. Saturday morning she noticed bruising around her bellybutton so presented to [facility] ED. Found to be anemic to 8.0, down from 12.[address] abdomen showed 3.8x2.2x3.4 cm fluid collection in gallbladder fossa, probably a postop hematoma. She was transferred back to [facility]. H/Family/Social Past Medical History Anxiety with panic attacks. Medical History: GERD, other (Morbid obesity) Medications Current Medications Sodium Chloride 1,000 ml @ 75 mls/hr [id number] IV Last administered on 11/23/18at 08:25; Admin Dose 75 MLS/HR; Start 11/23/18 at 07:15 IV Flush (NS 3 ml) 3 ml PER PROTOCOL IV ; Start 11/23/18 at 07:30 Ondansetron HCl (Zofran Tab) 4 mg Q6H PRN PO NAUSEA/VOMITING; Start 11/23/18 at 07:30 Acetaminophen (Tylenol Tab) 650 mg Q6H PRN PO .PAIN 1-3 OR TEMP; Start 11/23/18 at 07:30 Morphine Sulfate (morphine) 2 mg Q4H PRN IV .SEVERE PAIN 7-10 Last administered on 11/23/18at 07:44; Admin Dose 2 MG; Start 11/23/18 at 07:30 Coded Allergies: No Known Allergy (Unverified , 11/23/18) Past Surgical History Appendectomy in in 2017 colonoscopy and EGD 10-12 years ago for "bowel problems" and GERD. Past Surgical Hx: other Family History Significant Family History: no pertinent family hx Social History Alcohol Use: rarely Smoking Status: Never smoker Drug Use: none Exam/Review of Systems Vital Signs Vitals Vital Signs Date Temp Pulse Resp B/P (MAP) Pulse Ox O2 O2 Flow FiO2 Time Delivery Rate 11/23/18 98.1 63 18 113/69 99 Room Air 08:00 (84) Exam Exam Gen: Obese woman well groomed in no acute distress. Eyes: PERRL, no icterus HEENT: Moist mucous membranes, no pharyngeal erythema Neck: No lymphadenopathy Card: Regular rate and rhythm, no murmurs Pulm: Clear to auscultation bilaterally Abd: Obese, soft, laps scars healing well with steri-strips, nontender to light palpation, large ecchymosis around umbilicus. Ext: No cyanosis/clubbing/edema Skin: warm, dry, well perfused. EDEL HARDING MD Nov 23, 2018 10:17
[2018-11-23 14:00] VITALS: BP 118/68; PULSE 87; RESP 17
[2018-11-23] MEDS ORDERED: SOD CHLORIDE 0.9% 250 ML IV* ONE (14:49)
[2018-11-23] MEDS: HYDROCODONE/APAP (5/325) TAB PO PRN ×2 (14:55→20:45)
[2018-11-23] MEDS ORDERED: SOD CHLORIDE 0.9% 100 ML ONE (15:50)
[2018-11-23] MEDS ORDERED: IOHEXOL 300MG/ML 150 ML BTL ONE (15:50)
[2018-11-23] MEDS ORDERED: MELO7.5T38 PO (16:00)
[2018-11-23] MEDS ORDERED: OXYC-279 PO (16:00)
[2018-11-23] MEDS ORDERED: DOCU-144 PO (16:00)
[2018-11-23] MEDS ORDERED: RANI75TA13 PO (16:02)
[2018-11-23] MEDS ORDERED: CHOL400T10 PO (16:02)
[2018-11-23] MEDS ORDERED: LORA5TAB4 PO (16:02)
[2018-11-23] MEDS ORDERED: OMEP40CA6 PO (16:02)
[2018-11-23 20:15] VITALS: BP 105/53; PULSE 82; RESP 18
--- NOTE | 2018-11-23 22:16 | PN ---
Date/Time of Note Date/Time of Note DATE: 11/23/18 TIME: 22:15 Assessment/Plan Lines/Catheters IV Catheter Type (from Nrsg): Peripheral IV Assessment/Plan Assessment/Plan Hemodynamically stable throughout the day. Adequately responded appropriately to [address] does not show any increase in hematoma and abdominally nor extravasation of contrast If hematocrit is stable in the morning, okay to discharge per surgery Subjective 24 Hr Interval Summary Constitutional: no complaints, improved, ambulates Feeding: clear Exam/Review of Systems Vital Signs Vitals Vital Signs Date Temp Pulse Resp B/P (MAP) Pulse Ox O2 O2 Flow FiO2 Time Delivery Rate 11/23/18 97.8 87 17 118/68 100 Room Air 14:00 (85) Exam Constitutional: alert, oriented, well developed Gastrointestinal: soft, other (Mildly distended) Results Result Diagram: 11/23/18205811/23/18 0745 TRISTAN PINEDO MD Nov 23, 2018 22:16
[2018-11-24] MEDS: morphine 2 MG INJ IV PRN ×5 (00:07→22:15)
[2018-11-24] MEDS: SOD CHLORIDE 0.9% 1,000 ML IV SCH (00:10)
[2018-11-24 02:36] VITALS: BP 98/51; PULSE 61; RESP 18
[2018-11-24] MEDS ORDERED: PANTOPRAZOLE 40 MG INJ ONE (04:43)
[2018-11-24] MEDS: ONDANSETRON 4 MG INJ IV PRN ×3 (05:17→15:04)
[2018-11-24] MEDS: PANTOPRAZOLE 40 MG INJ IV SCH (05:17)
[2018-11-24 08:22] VITALS: BP 112/57; PULSE 70; RESP 18
[2018-11-24 08:24] VITALS: BP 103/52; PULSE 98; RESP 18
[2018-11-24] MEDS ORDERED: INFLUENZA VIRUS VACCINE 0.5 ML (DISPENSING) IM* ONE (09:00)
--- NOTE | 2018-11-24 09:39 | PN ---
Date/Time of Note Date/Time of Note DATE: 11/24/18 TIME: 09:37 Assessment/Plan Lines/Catheters IV Catheter Type (from Nrsg): Peripheral IV Assessment/Plan Assessment/Plan Hemodynamically stable overnight. Adequate responded appropriately to 1 unit PRBC Excellent urine output. See later today if hematocrit stable. Subjective 24 Hr Interval Summary Constitutional: other Feeding: advancing diet (Some nausea but otherwise doing well. Tolerating p.o. well.) Pain Control: other (Some slight pain to right upper quadrant trocar site) Exam/Review of Systems Vital Signs Vitals Vital Signs Date Temp Pulse Resp B/P (MAP) Pulse Ox O2 O2 Flow FiO2 Time Delivery Rate 11/24/18 98.1 98 18 103/52 100 Room Air 08:24 (69) Intake and Output 11/23/18 11/23/18 11/24/18 1515:00 23:00 07:00 IntakeIntake Total 500 ml 675 ml OutputOutput Total 875 ml BalanceBalance -375 ml 675 ml Exam Constitutional: alert, oriented, well developed Respiratory: clear to auscultation Cardiovascular: regular rate and rhythm Gastrointestinal: soft, other (Ecchymosis still present, non-tender except to right upper quadrant incision) Results Result Diagram: 11/24/18 0505 11/24/18 0505 TRISTAN IPNEDO MD Nov 24, 2018 09:39
[2018-11-24 14:15] VITALS: BP 104/61; PULSE 90; RESP 18
--- NOTE | 2018-11-24 15:42 | PN ---
Date/Time of Note Date/Time of Note DATE: 11/24/18 TIME: 15:39 Assessment/Plan VTE Prophylaxis Risk score (from Ns)>0 risk: 2 SCD applied (from Ns): Yes Pharmacological prophylaxis: NA/contraindicated Pharm contraindication: bleeding Lines/Catheters IV Catheter Type (from Nrsg): Peripheral IV Assessment/Plan Hospital Course S: Patient had blood transfusion yesterday. Seen by surgery team yesterday and today. Still having significant pain symptoms but started on diet. Still hav ing some vomiting symptoms. H&H stable. O: VS - see below PE: Gen: Obese woman well groomed in mild distress Eyes: PERRL, no icterus HEENT: Moist mucous membranes, no pharyngeal erythema Neck: No lymphadenopathy Card: Regular rate and rhythm, no murmurs Pulm: Clear to auscultation bilaterally Abd: Obese, soft, laps scars healing well with steri-strips, nontender to light palpation, large ecchymosis around umbilicus. Ext: No cyanosis/clubbing/edema Assessment/Plan: 33 yo obese woman no major PMH presents with postoperative hematoma and anemia after lap ijeoma. #Postoperative hematoma- s/p lap ijeoma by Dr. Jackson on 11/19- CT at [facility] showed gallbladder fossa hematoma. Again started on soft diet which she is somewhat tolerating now, still with some pain symptoms. Received blood transfusion yesterday - Will closely monitor H+H - Likely will not require operative drainage. In case Hgb keep dropping will consider angiogram and/or IR embolization. -For now continue [place], morphine prn pain. - No anticoag #Anemia- Patient denies hematochezia, hematemesis, melena. Last menses Oct 27, no vag bleed since then. Again hemoglobin stable after blood transfusion given yesterday -Monitor, transfuse for Hgb<7 or symptomatic anemia. DVT: SCDs GI: None Result Diagram: 11/24/18 1343 11/24/18 0505 Results 24hrs Laboratory Tests Test 11/23/18 20:59 11/24/18 05:05 11/24/18 07:21 11/24/18 13:43 White Blood Count 8.3 7.0 Red Blood Count 3.25 L 3.15 L Hemoglobin 9.0 #L 8.6 L 9.1 L Hematocrit 26.7 #L 26.0 L 27.6 L Mean Corpuscular 82.2 82.5 Volume Mean Corpuscular 27.7 L 27.3 L Hemoglobin Mean Corpuscular 33.7 33.1 Hemoglobin Concen t Red Cell 15.7 H 15.2 H Distribution Width Platelet Count 241 247 Mean Platelet 10.6 H 10.8 H Volume Immature 0.600 H 0.600 H Granulocytes % Neutrophils % 68.3 64.8 Lymphocytes % 19.1 21.3 Monocytes % 8.9 9.3 Eosinophils % 2.6 3.6 Basophils % 0.5 0.4 Nucleated Red 0.0 0.0 Blood Cells % Immature 0.050 H 0.040 H Granulocytes # Neutrophils # 5.7 4.5 Lymphocytes # 1.6 1.5 Monocytes # 0.7 0.7 Eosinophils # 0.2 0.3 Basophils # 0.0 0.0 Nucleated Red 0.0 0.0 Blood Cells # Sodium Level 140 Potassium Level 3.6 Chloride Level 109 Carbon Dioxide 24 Level Anion Gap 7 Blood Urea 3 L Nitrogen Creatinine 0.49 Est Glomerular > 60 Filtrat Rate mL/min Glucose Level 86 Calcium Level 8.3 L Total Bilirubin 0.5 Direct Bilirubin 0.00 Indirect 0.5 Bilirubin Aspartate Amino 35 Transf (AST/SGOT) Alanine 42 Aminotransferase (ALT/SGPT) Alkaline 92 Phosphatase Total Protein 6.0 L Albumin 3.3 Globulin 2.70 Albumin/Globulin 1.22 Ratio Lab Scanned BLOOD TRANSFUSIO Report N Exam/Review of Systems Exam Vitals Vital Signs Date Temp Pulse Resp B/P (MAP) Pulse Ox O2 O2 Flow FiO2 Time Delivery Rate 11/24/18 98.1 90 18 104/61 100 Room Air 14:15 (75) Intake and Output 11/23/18 11/23/18 11/24/18 1515:00 23:00 07:00 IntakeIntake Total 500 ml 675 ml OutputOutput Total 875 ml BalanceBalance -375 ml 675 ml Results Results 24hrs Laboratory Tests Test 11/23/18 20:59 11/24/18 05:05 11/24/18 07:21 11/24/18 13:43 White Blood Count 8.3 7.0 Red Blood Count 3.25 L 3.15 L Hemoglobin 9.0 #L 8.6 L 9.1 L Hematocrit 26.7 #L 26.0 L 27.6 L Mean Corpuscular 82.2 82.5 Volume Mean Corpuscular 27.7 L 27.3 L Hemoglobin Mean Corpuscular 33.7 33.1 Hemoglobin Concen t Red Cell 15.7 H 15.2 H Distribution Width Platelet Count 241 247 Mean Platelet 10.6 H 10.8 H Volume Immature 0.600 H 0.600 H Granulocytes % Neutrophils % 68.3 64.8 Lymphocytes % 19.1 21.3 Monocytes % 8.9 9.3 Eosinophils % 2.6 3.6 Basophils % 0.5 0.4 Nucleated Red 0.0 0.0 Blood Cells % Immature 0.050 H 0.040 H Granulocytes # Neutrophils # 5.7 4.5 Lymphocytes # 1.6 1.5 Monocytes # 0.7 0.7 Eosinophils # 0.2 0.3 Basophils # 0.0 0.0 Nucleated Red 0.0 0.0 Blood Cells # Sodium Level 140 Potassium Level 3.6 Chloride Level 109 Carbon Dioxide 24 Level Anion Gap 7 Blood Urea 3 L Nitrogen Creatinine 0.49 Est Glomerular > 60 Filtrat Rate mL/min Glucose Level 86 Calcium Level 8.3 L Total Bilirubin 0.5 Direct Bilirubin 0.00 Indirect 0.5 Bilirubin Aspartate Amino 35 Transf (AST/SGOT) Alanine 42 Aminotransferase (ALT/SGPT) Alkaline 92 Phosphatase Total Protein 6.0 L Albumin 3.3 Globulin 2.70 Albumin/Globulin 1.22 Ratio Lab Scanned BLOOD TRANSFUSIO Report N Medications Medication Current Medications Acetaminophen (Tylenol Tab) 650 mg Q6H PRN PO .PAIN 1-3 OR TEMP; Start 11/23/18 at 07:30 Acetaminophen/ Hydrocodone Bitart ([place] (5/325)) 1 tab Q4H PRN PO MODERATE PAIN LEVEL 4-6 Last administered on 11/23/18at 20:45; Admin Dose 1 TAB; Start 11/23/18 at 10:30 Pantoprazole (Protonix Iv) 40 mg DAILY@06 IV Last administered on 11/24/18at 05:17; Admin Dose 40 MG; Start 11/24/18 at 06:00 Trimethobenzamide HCl ([place]) 200 mg Q6H PRN IM NAUSEA AND/OR VOMITING; Start 11/24/18 at 16:00 Ondansetron HCl 8 mg/Sodium Chloride 54 ml @ 216 mls/hr Q4H PRN IV NAUSEA AND/OR VOMITING; Start 11/24/18 at 16:00 Morphine Sulfate (morphine) 1 mg Q4H PRN IV .SEVERE PAIN 7-10; Start 11/24/18 at 19:30; Status UNV Magnesium Hydroxide ([place] Mom) 622 mg QID PRN PO DISTENSION/GAS/BLOATING; Start 11/24/18 at 16:00; Status UNV GADIEL MALDONADO Nov 24, 2018 15:42
[2018-11-24] MEDS ORDERED: HYDROmorphONE 1 MG/ML SYG IV ONE (16:00)
[2018-11-24] MEDS ORDERED: MAGNESIUM HYDROXIDE 311 MG TAB PO PRN (16:00)
[2018-11-24] MEDS ORDERED: ONDANSETRON INJ 8 MG in SOD CHLORIDE 0.9% 50 ML IV PRN ×4 (16:00)
[2018-11-24] MEDS: TRIMETHOBENZAMIDE 100 MG/ML VIAL IM PRN (16:49)
[2018-11-24] MEDS ORDERED: ONDANSETRON 4 MG INJ IV PRN (19:00)
[2018-11-24 19:32] VITALS: BP 115/67; PULSE 71; RESP 17
[2018-11-24] MEDS: HYDROCODONE/APAP (5/325) TAB PO PRN (21:01)
[2018-11-25 01:58] VITALS: BP 94/47; PULSE 63; RESP 18
[2018-11-25] MEDS: TRIMETHOBENZAMIDE 100 MG/ML VIAL IM PRN (02:51)
[2018-11-25] MEDS: morphine 2 MG INJ IV PRN ×6 (02:51→21:22)
[2018-11-25] MEDS ORDERED: AL HYDROX/MG HYDROX/SIMETH 30 ML CUP ONE (03:16)
[2018-11-25] MEDS ORDERED: AL HYDROX/MG HYDROX/SIMETH 30 ML CUP PO PRN (03:30)
[2018-11-25 04:20] VITALS: BP 114/54; PULSE 77; RESP 18
[2018-11-25] MEDS: PANTOPRAZOLE 40 MG INJ IV SCH (05:25)
[2018-11-25] MEDS: DEXTROSE 5%-0.45% NACL 1,000 ML IV SCH ×2 (05:32→18:50)
[2018-11-25] MEDS: HYDROCODONE/APAP (5/325) TAB PO PRN (05:35)
[2018-11-25] MEDS ORDERED: SOD CHLORIDE 0.9% 1,000 ML IV ONE (06:00)
--- NOTE | 2018-11-25 06:10 | PN ---
Date/Time of Note Date/Time of Note DATE: 11/25/18 TIME: 06:07 Assessment/Plan Lines/Catheters IV Catheter Type (from Nrsg): Peripheral IV Assessment/Plan Assessment/Plan Hemodynamically stable overnight. Good urine output overnight. Hematocrit pending. Nausea and emesis likely due to blood in lesser sac. Recommend CT-guided drainage to aspirate blood to relieve nausea and emesis. Patient to be made n.p.o. and NG tube inserted. IV fluids to start once again. Dr. Alcantara to cover in my absence till my return on Subjective 24 Hr Interval Summary Constitutional: other (Patient with persistent nausea and multiple episodes of emesis overnight. Also with some abdominal pain to right upper quadrant.) Feeding: NPO Pain Control: moderate Exam/Review of Systems Vital Signs Vitals Vital Signs Date Temp Pulse Resp B/P (MAP) Pulse Ox O2 O2 Flow FiO2 Time Delivery Rate 11/25/18 98.1 63 18 94/47 (63) 98 01:58 11/24/18 Room Air 14:15 Intake and Output 11/24/18 11/24/18 11/25/18 1515:00 23:00 07:00 IntakeIntake Total 1405 ml 200 ml BalanceBalance 1405 ml 200 ml Exam Constitutional: alert, oriented, well developed Respiratory: clear to auscultation Cardiovascular: regular rate and rhythm Gastrointestinal: soft, other (Nondistended, ecchymosis to lower abdomen, some tenderness to right upper quadrant, no peritoneal findings) Results Result Diagram: 11/24/18 1343 11/24/18 0501 TRISTAN PINEDO MD Nov 25, 2018 06:10
[2018-11-25 07:51] VITALS: BP 120/65; PULSE 58; RESP 17
[2018-11-25] MEDS ORDERED: POTASSIUM CHLORIDE 50 ML IVPB SCH (10:30)
[2018-11-25 11:45] VITALS: BP 116/57; PULSE 66; RESP 18
[2018-11-25] MEDS ORDERED: SOD CHLORIDE 0.9% 500 ML ONE (12:00)
[2018-11-25] MEDS ORDERED: POTASSIUM PHOSPHATE 40 MEQ in SOD CHLORIDE 0.9% 250 ML IVPB SCH (12:00)
[2018-11-25] MEDS ORDERED: LIDOCAINE 1% (MDV) 20 ML INJ ONE (12:00)
--- NOTE | 2018-11-25 12:42 | HPN ---
Date/Time of Note Date/Time of Note DATE: 11/25/18 TIME: 12:41 Interval H&P Admission Note Pt. seen H&P reviewed: No system changes BRENDON ARRINGTON MD Nov 25, 2018 12:42
[2018-11-25 14:12] VITALS: BP 119/66; PULSE 65; RESP 17
--- NOTE | 2018-11-25 14:16 | PN ---
Date/Time of Note Date/Time of Note DATE: 11/25/18 TIME: 14:07 Assessment/Plan VTE Prophylaxis Risk score (from Ns)>0 risk: 3 SCD applied (from Ns): Yes Pharmacological prophylaxis: NA/contraindicated Pharm contraindication: bleeding Lines/Catheters IV Catheter Type (from Nrsg): Peripheral IV Assessment/Plan Hospital Course S: Patient had more nausea vomiting overnight, and seen by surgery team this morning and had CT-guided drainage performed of the hematoma again. Also had NG tube placed this morning with improvement in her nausea vomiting symptoms. Having some slight throat discomfort now, less abdominal pain and nausea vomiting symptoms overall. O: VS - see below PE: Gen: Obese woman well groomed in mild distress Eyes: PERRL, no icterus HEENT: Moist mucous membranes, no pharyngeal erythema Neck: No lymphadenopathy Card: Regular rate and rhythm, no murmurs Pulm: Clear to auscultation bilaterally Abd: Obese, soft, laps scars healing well with steri-strips, nontender to light palpation, large ecchymosis around umbilicus. Ext: No cyanosis/clubbing/edema Assessment/Plan: 33 yo obese woman no major PMH presents with postoperative hematoma and anemia after lap ijeoma. #Postoperative hematoma- s/p lap ijeoma by Dr. Jackson on 11/19- CT at [facility] showed gallbladder fossa hematoma. Received blood transfusion 2 days ago, and again had the interventional radiology procedure for hematoma drainage performed earlier this morning, drain now in place in that area, along with NG tube which again was placed earlier this morning. - Will closely monitor H+H, and drainage from the bleeding site -Per surgery team, start clear liquid diet today and if she tolerates that, possible DC of NG tube in a few hours. -For now continue [place], morphine prn pain. - No anticoag, and today replete low phosphorus and potassium levels. #Anemia- Patient denies hematochezia, hematemesis, melena. Last menses Oct 27, no vag bleed since then. Again hemoglobin stable after blood transfusion given 2 days ago -Monitor, transfuse for Hgb<7 or symptomatic anemia. DVT: SCDs GI: None Result Diagram: 11/25/18 0609 11/25/18 0609 Results 24hrs Laboratory Tests Test 11/25/18 06:09 White Blood Count 14.1 #H Red Blood Count 3.45 L Hemoglobin 9.5 L Hematocrit 27.0 L Mean Corpuscular Volume 78.3 L Mean Corpuscular Hemoglobin 27.5 L Mean Corpuscular Hemoglobin Concent 35.2 Red Cell Distribution Width 14.9 H Platelet Count 323 # Mean Platelet Volume 10.7 H Immature Granulocytes % 0.500 H Neutrophils % 85.6 H Lymphocytes % 7.1 L Monocytes % 6.3 Eosinophils % 0.3 Basophils % 0.2 Nucleated Red Blood Cells % 0.0 Immature Granulocytes # 0.070 H Neutrophils # 12.1 H Lymphocytes # 1.0 Monocytes # 0.9 Eosinophils # 0.0 Basophils # 0.0 Nucleated Red Blood Cells # 0.0 Sodium Level 140 Potassium Level 2.7 *L Chloride Level 108 Carbon Dioxide Level 22 Anion Gap 10 Blood Urea Nitrogen 4 L Creatinine 0.45 Est Glomerular Filtrat Rate mL/min > 60 Glucose Level 138 # Calcium Level 8.9 Phosphorus Level 1.5 L Magnesium Level 1.9 Exam/Review of Systems Exam Vitals Vital Signs Date Temp Pulse Resp B/P (MAP) Pulse Ox O2 O2 Flow FiO2 Time Delivery Rate 11/25/18 66 18 116/57 98 Room Air 11:45 (76) 11/25/18 98.0 07:51 Intake and Output 11/24/18 11/24/18 11/25/18 1414:59 22:59 06:59 IntakeIntake Total 1405 ml 200 ml 129 ml BalanceBalance 1405 ml 200 ml 129 ml Results Results 24hrs Laboratory Tests Test 11/25/18 06:09 White Blood Count 14.1 #H Red Blood Count 3.45 L Hemoglobin 9.5 L Hematocrit 27.0 L Mean Corpuscular Volume 78.3 L Mean Corpuscular Hemoglobin 27.5 L Mean Corpuscular Hemoglobin Concent 35.2 Red Cell Distribution Width 14.9 H Platelet Count 323 # Mean Platelet Volume 10.7 H Immature Granulocytes % 0.500 H Neutrophils % 85.6 H Lymphocytes % 7.1 L Monocytes % 6.3 Eosinophils % 0.3 Basophils % 0.2 Nucleated Red Blood Cells % 0.0 Immature Granulocytes # 0.070 H Neutrophils # 12.1 H Lymphocytes # 1.0 Monocytes # 0.9 Eosinophils # 0.0 Basophils # 0.0 Nucleated Red Blood Cells # 0.0 Sodium Level 140 Potassium Level 2.7 *L Chloride Level 108 Carbon Dioxide Level 22 Anion Gap 10 Blood Urea Nitrogen 4 L Creatinine 0.45 Est Glomerular Filtrat Rate mL/min > 60 Glucose Level 138 # Calcium Level 8.9 Phosphorus Level 1.5 L Magnesium Level 1.9 Medications Medication Current Medications Acetaminophen (Tylenol Tab) 650 mg Q6H PRN PO .PAIN 1-3 OR TEMP; Start 11/23/18 at 07:30 Pantoprazole (Protonix Iv) 40 mg DAILY@06 IV Last administered on 11/25/18 05:25; Admin Dose 40 MG; Start 11/24/18 at 06:00 Trimethobenzamide HCl (Tigan) 200 mg Q6H PRN IM NAUSEA AND/OR VOMITING Last administered on 11/25/18 02:51; Admin Dose 200 MG; Start 11/24/18 at 16:00 Ondansetron HCl 8 mg/Sodium Chloride 54 ml @ 216 mls/hr Q4H PRN IV NAUSEA AND/OR VOMITING Last administered on 11/25/18 03:50; Admin Dose 216 MLS/HR; Start 11/24/18 at 16:00 Magnesium Hydroxide (Vines' Mom) 622 mg QID PRN PO DISTENSION/GAS/BLOATING; Start 11/24/18 at 16:00 Al Hydrox/Mg Hydrox/Simethicone (Mag-Al Plus) 30 ml Q6H PRN PO GASTROINTESTINAL UPSET Last administered on 11/25/18 03:23; Admin Dose 30 ML; Start 11/25/18 at 03:30 Dextrose/Sodium Chloride 1,000 ml @ 75 mls/hr [id number] IV Last administered on 11/25/18 05:32; Admin Dose 75 MLS/HR; Start 11/25/18 at 05:30 Morphine Sulfate (morphine) 4 mg Q2 PRN IV .SEVERE PAIN 7-10 Last administered on 11/25/18 11:31; Admin Dose 4 MG; Start 11/25/18 at 06:30 Morphine Sulfate (morphine) 2 mg Q2H PRN IV MODERATE PAIN LEVEL 4-6; Start 11/25/18 at 06:30 Potassium Phosphate 40 meq/ Sodium Chloride 259.0909 ml @ 64.773 m... ONCE IVPB Last administered on 11/25/18 13:37; Admin Dose 64.773 MLS/HR; Start 11/25/18 at 12:00; Stop 11/25/18 at 15:59 Potassium Chloride 100 ml @ 50 mls/hr Q2H IVPB ; Start 11/25/18 at 12:00; Stop 11/25/18 at 19:59 GADIEL MALDONADO Nov 25, 2018 14:16
[2018-11-25] MEDS: POTASSIUM CHLORIDE 100 ML IVPB SCH ×3 (18:50→22:54)
[2018-11-25 20:00] VITALS: BP 107/67; PULSE 76; RESP 18
[2018-11-25] MEDS ORDERED: MAGNESIUM HYDROXIDE 30ML CUP PO PRN (20:00)
[2018-11-26 01:54] VITALS: BP 90/51; PULSE 77; RESP 18
[2018-11-26] MEDS: DEXTROSE 5%-0.45% NACL 1,000 ML IV SCH ×3 (03:30→16:56)
[2018-11-26] MEDS: PANTOPRAZOLE 40 MG INJ IV SCH (06:29)
[2018-11-26] MEDS: POTASSIUM CHLORIDE 100 ML IVPB SCH ×2 (06:29→13:29)
[2018-11-26] MEDS: morphine 2 MG INJ IV PRN (06:37)
[2018-11-26 08:11] VITALS: BP_SYST 148; BP_SYST 93; BP_DIAS 50; BP_DIAS 64; PULSE 65; PULSE 70; RESP 16
[2018-11-26 14:16] VITALS: BP 112/67; PULSE 99; RESP 18
--- NOTE | 2018-11-26 14:43 | PN ---
Date/Time of Note Date/Time of Note DATE: 11/26/18 TIME: 14:38 Assessment/Plan VTE Prophylaxis Risk score (from Ns)>0 risk: 2 SCD applied (from Ns): Yes Pharmacological prophylaxis: NA/contraindicated Pharm contraindication: bleeding Lines/Catheters IV C[facility]ter Type (from [facility] Peripheral IV Assessment/Plan Hospital Course S: Patient now has NG tube out. Now on soft diet. O: VS - see below PE: Gen: Obese woman well groomed in mild distress Eyes: PERRL, no icterus HEENT: Moist mucous membranes, no pharyngeal erythema Neck: No lymphadenopathy Card: Regular rate and rhythm, no murmurs Pulm: Clear to auscultation bilaterally Abd: Obese, soft, laps scars healing well with steri-strips, nontender to light palpation, drain in place Ext: No cyanosis/clubbing/edema Assessment/Plan: 33 yo obese woman no major PMH presents with postoperative hematoma and anemia after lap ijeoma. #Postoperative hematoma- s/p lap ijeoma by Dr. Jackson on 11/19- CT at [facility] showed gallbladder fossa hematoma. Received blood transfusion 3 days ago, and again had the interventional radiology procedure for hematoma drainage performed yesterday, drain now in place in that area. NG tube out now. - Will closely monitor H+H, and drainage from the bleeding site -Per surgery team, advance to soft diet today, monitor -For now continue [place], morphine prn pain. #Anemia- Patient denies hematochezia, hematemesis, melena. Last menses Oct 27, no vag bleed since then. Again hemoglobin stable after blood transfusion given 3 days ago -Monitor, transfuse for Hgb<7 or symptomatic anemia. DVT: SCDs GI: None Result Diagram: 11/26/1852611/26/18526 Results 24hrs Laboratory Tests Test 11/26/18 05:27 White Blood Count 9.1 # Red Blood Count 3.20 L Hemoglobin 8.8 L Hematocrit 26.1 L Mean Corpuscular Volume 81.6 L Mean Corpuscular Hemoglobin 27.5 L Mean Corpuscular Hemoglobin Concent 33.7 Red Cell Distribution Width 15.8 H Platelet Count 319 Mean Platelet Volume 10.6 H Immature Granulocytes % 0.400 Neutrophils % 70.5 Lymphocytes % 16.6 Monocytes % 10.5 Eosinophils % 1.8 Basophils % 0.2 Nucleated Red Blood Cells % 0.0 Immature Granulocytes # 0.040 H Neutrophils # 6.4 Lymphocytes # 1.5 Monocytes # 1.0 H Eosinophils # 0.2 Basophils # 0.0 Nucleated Red Blood Cells # 0.0 Sodium Level 140 Potassium Level 2.9 *L Chloride Level 105 Carbon Dioxide Level 26 Anion Gap 9 Blood Urea Nitrogen 3 L Creatinine 0.48 Est Glomerular Filtrat Rate mL/min > 60 Glucose Level 113 Calcium Level 8.2 L Phosphorus Level 3.3 Magnesium Level 1.9 Exam/Review of Systems Exam Vitals Vital Signs Date Temp Pulse Resp B/P (MAP) Pulse Ox O2 O2 Flow FiO2 Time Delivery Rate 11/26/18 98.8 99 18 112/67 100 14:16 (82) 11/25/18 Room Air 14:12 Intake and Output 11/25/18 11/25/18 11/26/18 1515:00 23:00 07:00 IntakeIntake Total 1000 ml 959.0909 ml 1137.5 ml OutputOutput Total 22 ml 20 ml 25 ml BalanceBalance 978 ml 939.0909 ml 1112.5 ml Results Results 24hrs Laboratory Tests Test 11/26/18 05:27 White Blood Count 9.1 # Red Blood Count 3.20 L Hemoglobin 8.8 L Hematocrit 26.1 L Mean Corpuscular Volume 81.6 L Mean Corpuscular Hemoglobin 27.5 L Mean Corpuscular Hemoglobin Concent 33.7 Red Cell Distribution Width 15.8 H Platelet Count 319 Mean Platelet Volume 10.6 H Immature Granulocytes % 0.400 Neutrophils % 70.5 Lymphocytes % 16.6 Monocytes % 10.5 Eosinophils % 1.8 Basophils % 0.2 Nucleated Red Blood Cells % 0.0 Immature Granulocytes # 0.040 H Neutrophils # 6.4 Lymphocytes # 1.5 Monocytes # 1.0 H Eosinophils # 0.2 Basophils # 0.0 Nucleated Red Blood Cells # 0.0 Sodium Level 140 Potassium Level 2.9 *L Chloride Level 105 Carbon Dioxide Level 26 Anion Gap 9 Blood Urea Nitrogen 3 L Creatinine 0.48 Est Glomerular Filtrat Rate mL/min > 60 Glucose Level 113 Calcium Level 8.2 L Phosphorus Level 3.3 Magnesium Level 1.9 Medications Medication Current Medications Acetaminophen (Tylenol Tab) 650 mg Q6H PRN PO .PAIN 1-3 OR TEMP; Start 11/23/18 at 07:30 Pantoprazole (Protonix Iv) 40 mg DAILY@06 IV Last administered on 11/26/18 06:29; Admin Dose 40 MG; Start 11/24/18 at 06:00 Trimethobenzamide HCl (Tigan) 200 mg Q6H PRN IM NAUSEA AND/OR VOMITING Last administered on 11/25/18 02:51; Admin Dose 200 MG; Start 11/24/18 at 16:00 Ondansetron HCl 8 mg/Sodium Chloride 54 ml @ 216 mls/hr Q4H PRN IV NAUSEA AND/OR VOMITING Last administered on 11/25/18 03:50; Admin Dose 216 MLS/HR; Start 11/24/18 at 16:00 Al Hydrox/Mg Hydrox/Simethicone (Mag-Al Plus) 30 ml Q6H PRN PO GASTROINTESTINAL UPSET Last administered on 11/25/18 03:23; Admin Dose 30 ML; Start 11/25/18 at 03:30 Dextrose/Sodium Chloride 1,000 ml @ 75 mls/hr [id number] IV Last administered on 11/26/18 03:30; Admin Dose 75 MLS/HR; Start 11/25/18 at 05:30 Morphine Sulfate (morphine) 4 mg Q2 PRN IV .SEVERE PAIN 7-10 Last administered on 11/25/18 21:22; Admin Dose 4 MG; Start 11/25/18 at 06:30 Morphine Sulfate (morphine) 2 mg Q2H PRN IV MODERATE PAIN LEVEL 4-6 Last administered on 11/26/18 06:37; Admin Dose 2 MG; Start 11/25/18 at 06:30 Magnesium Hydroxide (Milk Of Mag) 30 ml QID PRN PO DISTENSION/GAS/BLOATING; Start 11/25/18 at 20:00 GADIEL MALDONADO Nov 26, 2018 14:43
--- NOTE | 2018-11-26 14:54 | PDOCDIS ---
Discharge Instructions CONDITION [id number] Patient Condition: [id number] Stable HOME CARE INSTRUCTIONS: [id number] Diet Instructions: [id number] Regular ACTIVITY: [id number] Activity Restrictions: [id number] Slowly Increase Activity Rest between Activity Avoid heavy lifting FOLLOW UP/APPOINTMENTS Follow-up Plan Please take your medications as prescribed, see your doctor in the clinic in the next 1 week. GADIEL MALDONADO Nov 26, 2018 14:54
[2018-11-26] MEDS ORDERED: RANI75TA13 PO (14:56)
[2018-11-26] MEDS ORDERED: OXYC-279 PO (14:56)
[2018-11-26] MEDS ORDERED: ONDA4TAB13 PO (14:56)
--- NOTE | 2018-11-26 15:03 | DS ---
Date/Time of Note Date/Time of Note DATE: 11/26/18 TIME: 14:58 Discharge Summary Admission/Discharge Info Admit Date/Time Nov 23, 2018 at 07:08 Discharge Date/Time Discharge Diagnosis #Postoperative hematoma- s/p lap ijeoma by Dr. Jackson on 11/19- CT at [facility] showed gallbladder fossa hematoma. Received blood transfusion 3 days ago, and again had the interventional radiology procedure for hematoma drainage performed yesterday, drain now in place in that area. NG tube out now. - Will closely monitor H+H, and drainage from the bleeding site -Per surgery team, advance to soft diet today, monitor -For now continue [place], morphine prn pain. #Anemia- Patient denies hematochezia, hematemesis, melena. Last menses Oct 27, no vag bleed since then. Again hemoglobin stable after blood transfusion given 3 days ago -Monitor, transfuse for Hgb<7 or symptomatic anemia. Patient Condition: Stable Procedures A. CT abdomen pelvis: IMPRESSION: Intraperitoneal , lesser sac and right lateral abdominal and pelvic wall hemorrhage in patient status post recent cholecystectomy. No active extravasation is seen. Fatty liver. Complex cystic mass right adnexa likely representing physiologic cyst. B. CT guided abdominal fluid collection drainage. IMPRESSION: 1. Successful CT guided abdominal fluid collection drainage. Hx of Present Illness 33 yo woman s/p recent lap cholecystectomy transferred from OSH for worsening abdominal pain, bruising, and anemia. Symptoms started about 2 months ago with aching RUQ pain, worsening with meals, rarely associated with nausea and vomiting. She went to the [place] emergency department and was diagnosed with symptomatic cholelithiasis and she was instructed to get outpatient surgery. She struggled to get insurance authorization for surgery until this past Sunday 11/19 when she was admitted to [facility] and got lap ijeoma by Dr. Jackson. She was discharged from PACU after surgery. Since surgery she's been taking Colace and Meloxicam BID as prescribed as well as Percocet prn. She's had poor appetite and once daily episodes of small volume nonbloody bilious emesis. She continues to have moderate aching abdominal pain, worse with deep breaths, cough, and hiccups. She is passing firm, brown nonbloody bowel movements. She has been keeping her surgical incisions clean and dry. Saturday morning she noticed bruising around her bellybutton so presented to [facility] ED. Found to be anemic to 8.0, down from 12.[address] abdomen showed 3.8x2.2x3.4 cm fluid collection in gallbladder fossa, probably a postop hematoma. She was transferred back to [facility]. Hospital Course Patient was admitted and seen by surgery team. Her CT scan abdomen pelvis did show signs of intraperitoneal and pelvic wall hemorrhage. Patient was placed on pain control medications and made n.p.o. initially on admission. She had a hemoglobin in the low to mid 7 range and was given 1 unit PRBC transfusion during this hospital stay. Her hemoglobin remained stable afterwards. After being n.p.o. she required NG tube for the first part of her hospital stay. She did have some nausea vomiting symptoms but these were controlled with antiemetics per she also underwent, based on surgery recommendations, successful CT guided abdominal fluid collection drainage. Afterwards she had some repletion of some low potassium. She was able to ambulate with assistance. We were starting her on soft diet per the surgery recommendations on the day of discharge. If she handles that without any significant nausea vomiting symptoms or abdominal pain, and of home health set up successfully by the patient case manager for her accordion drain which she has in place now, she will be discharged home later today in improved condition. See below for full list of discharge medications. Home Meds Active Scripts Ondansetron Hcl* (Zofran*) 4 Mg Tab, 4 MG PO Q6H PRN for NAUSEA AND OR VOMITING, #20 TAB Prov:GADIEL MALDONADO S. 11/26/18 Ranitidine Hcl* (Zantac*) 75 Mg Tablet, 75 MG PO DAILY, #30 TAB 2 Refills pt unsure of dose Prov:GADIEL MALDONADO S. 11/26/18 Oxycodone HCl/Acetaminophen (Percocet 5-325 mg Tablet) 1 Each Tablet, 1 EACH PO Q6 PRN for PAIN, #25 TAB 1-2 tablets Prov:GADIEL MALDONADO S. 11/26/18 Reported Medications Cholecalciferol* (Vitamin D*) 400 Unit Tablet, PO DAILY, TAB 11/23/18 Loratadine* (Claritin*) 5 Mg Tab.rapdis, 5 MG PO DAILY, #30 TAB 11/23/18 Docusate Sodium* (Colace*) 100 Mg Capsule, 100 MG PO BID, #60 CAP 11/23/18 Discontinued Reported Medications Omeprazole* (Omeprazole*) 40 Mg Capsule.dr, 0 PO DAILY, #30 CAP pt. unsure of dose 11/23/18 Meloxicam* (Meloxicam*) 7.5 Mg Tablet, 7.5 MG PO BID, #30 TAB 11/23/18 Follow-up Plan Please take your medications as prescribed, see your doctor in the clinic in the next 1 week. Primary Care Provider Not On Staff Doctor Time spent on discharge: > 30 minutes Pending Labs Laboratory Tests Test 11/26/18 05:27 White Blood Count 9.1 10^3/ul (4.8-10.8) Red Blood Count 3.20 10^6/ul (4.20-5.40) Hemoglobin 8.8 g/dl (12.0-16.0) Hematocrit 26.1 % (37.0-47.0) Mean Corpuscular Volume 81.6 fl (82.0-101.0) Mean Corpuscular Hemoglobin 27.5 pg (29.0-33.0) Mean Corpuscular Hemoglobin Concent 33.7 g/dl (32.0-37.0) Red Cell Distribution Width 15.8 % (11.5-14.5) Platelet Count 319 10^3/UL (140-415) Mean Platelet Volume 10.6 fl (7.4-10.4) Immature Granulocytes % 0.400 % (0.001-0.429) Neutrophils % 70.5 % (39.0-77.0) Lymphocytes % 16.6 % (15.0-51.0) Monocytes % 10.5 % (0.0-11.0) Eosinophils % 1.8 % (0.0-7.0) Basophils % 0.2 % (0.0-2.0) Nucleated Red Blood Cells % 0.0 /100WBC (0.0-0.0) Immature Granulocytes # 0.040 10^3/ul (0.0-0.031) Neutrophils # 6.4 10^3/ul (1.6-7.5) Lymphocytes # 1.5 10^3/ul (0.8-2.9) Monocytes # 1.0 10^3/ul (0.3-0.9) Eosinophils # 0.2 10^3/ul (0.0-0.5) Basophils # 0.0 10^3/ul (0.0-0.1) Nucleated Red Blood Cells # 0.0 10^3/ul (0.0-0.0) Sodium Level 140 mmol/L (135-144) Potassium Level 2.9 mmol/L (3.5-5.1) Chloride Level 105 mmol/L (97-110) Carbon Dioxide Level 26 mmol/L (21-31) Anion Gap 9 (5-13) Blood Urea Nitrogen 3 mg/dl (7-20) Creatinine 0.48 mg/dl (0.44-1.00) Est Glomerular Filtrat Rate mL/min > 60 mL/min (>60) Glucose Level 113 mg/dl (70-220) Calcium Level 8.2 mg/dl (8.4-10.2) Phosphorus Level 3.3 mg/dl (2.5-4.9) Magnesium Level 1.9 mg/dl (1.7-2.5) GADIEL MALDONADO Nov 26, 2018 15:03
[2018-11-26] MEDS: HYDROCODONE/APAP (7.5/325) TAB PO PRN ×2 (15:21→20:29)
[2018-11-26 20:00] VITALS: BP 106/57; PULSE 83; RESP 18
[2018-11-27 02:00] VITALS: BP 100/56; PULSE 93; RESP 18
[2018-11-27] MEDS: PANTOPRAZOLE 40 MG INJ IV SCH (05:39)
[2018-11-27] MEDS: DEXTROSE 5%-0.45% NACL 1,000 ML IV SCH (05:39)
[2018-11-27 08:16] VITALS: BP 95/49; PULSE 72; RESP 18
--- NOTE | 2018-11-27 08:23 | DS ---
Date/Time of Note Date/Time of Note DATE: 11/27/18 TIME: 08:22 Discharge Summary Admission/Discharge Info Admit Date/Time Nov 23, 2018 at 07:08 Discharge Date/Time Discharge Diagnosis #Postoperative hematoma- s/p lap ijeoma by Dr. Jackson on 11/19- CT at [facility] showed gallbladder fossa hematoma. Received blood transfusion 3 days ago, and again had the interventional radiology procedure for hematoma drainage performed yesterday, drain now in place in that area. NG tube out now. - Will closely monitor H+H, and drainage from the bleeding site -Per surgery team, advance to soft diet today, monitor -For now continue [place], morphine prn pain. #Anemia- Patient denies hematochezia, hematemesis, melena. Last menses Oct 27, no vag bleed since then. Again hemoglobin stable after blood transfusion given 3 days ago -Monitor, transfuse for Hgb<7 or symptomatic anemia. Patient Condition: Stable Hx of Present Illness 33 yo woman s/p recent lap cholecystectomy transferred from OSH for worsening abdominal pain, bruising, and anemia. Symptoms started about 2 months ago with aching RUQ pain, worsening with meals, rarely associated with nausea and vomiting. She went to the [place] emergency department and was diagnosed with symptomatic cholelithiasis and she was instructed to get outpatient surgery. She struggled to get insurance authorization for surgery until this past Sunday 11/19 when she was admitted to [facility] and got lap ijeoma by Dr. Jackson. She was discharged from PACU after surgery. Since surgery she's been taking Colace and Meloxicam BID as prescribed as well as Percocet prn. She's had poor appetite and once daily episodes of small volume nonbloody bilious emesis. She continues to have moderate aching abdominal pain, worse with deep breaths, cough, and hiccups. She is passing firm, brown nonbloody bowel movements. She has been keeping her surgical incisions clean and dry. Saturday morning she noticed bruising around her bellybutton so presented to [facility] ED. Found to be anemic to 8.0, down from 12.[address] abdomen showed 3.8x2.2x3.4 cm fluid collection in gallbladder fossa, probably a postop hematoma. She was transferred back to [facility]. Hospital Course Patient was admitted and seen by surgery team. Her CT scan abdomen pelvis did show signs of intraperitoneal and pelvic wall hemorrhage. Patient was placed on pain control medications and made n.p.o. initially on admission. She had a hemoglobin in the low to mid 7 range and was given 1 unit PRBC transfusion during this hospital stay. Her hemoglobin remained stable afterwards. After b eing n.p.o. she required NG tube for the first part of her hospital stay. She did have some nausea vomiting symptoms but these were controlled with antiemetics per she also underwent, based on surgery recommendations, successful CT guided abdominal fluid collection drainage. Afterwards she had some repletion of some low potassium. She was able to ambulate with assistance. Patient was placed on soft diet per the surgery recommendations the day before discharge, which she tolerated without any significant nausea vomiting symptoms or abdominal pain case management was in the process of setting up home health for her accordion drain which she has in place now; patient stayed overnight on November 26, 2018 because of some social issues, and she will be discharged home later today in improved condition. See below for full list of discharge medications. Home Meds Active Scripts Ondansetron Hcl* (Zofran*) 4 Mg Tab, 4 MG PO Q6H PRN for NAUSEA AND OR VOMITING, #20 TAB Prov:GADIEL MALDONADO S. 11/26/18 Ranitidine Hcl* (Zantac*) 75 Mg Tablet, 75 MG PO DAILY, #30 TAB 2 Refills pt unsure of dose Prov:GADIEL MALDONADO S. 11/26/18 Oxycodone HCl/Acetaminophen (Percocet 5-325 mg Tablet) 1 Each Tablet, 1 EACH PO Q6 PRN for PAIN, #25 TAB 1-2 tablets Prov:GADIEL MALDONADO S. 11/26/18 Reported Medications Cholecalciferol* (Vitamin D*) 400 Unit Tablet, PO DAILY, TAB 11/23/18 Loratadine* (Claritin*) 5 Mg Tab.rapdis, 5 MG PO DAILY, #30 TAB 11/23/18 Docusate Sodium* (Colace*) 100 Mg Capsule, 100 MG PO BID, #60 CAP 11/23/18 Discontinued Reported Medications Omeprazole* (Omeprazole*) 40 Mg Capsule.dr, 0 PO DAILY, #30 CAP pt. unsure of dose 11/23/18 Meloxicam* (Meloxicam*) 7.5 Mg Tablet, 7.5 MG PO BID, #30 TAB 11/23/18 Follow-up Plan Please take your medications as prescribed, see your doctor in the clinic in the next 1 week. Primary Care Provider Not On Staff Doctor Time spent on discharge: > 30 minutes Pending Labs Laboratory Tests Test 11/26/18 18:54 Sodium Level 139 mmol/L (135-144) Potassium Level 3.8 mmol/L (3.5-5.1) Chloride Level 107 mmol/L (97-110) Carbon Dioxide Level 26 mmol/L (21-31) Anion Gap 6 (5-13) Blood Urea Nitrogen 4 mg/dl (7-20) Creatinine 0.56 mg/dl (0.44-1.00) Est Glomerular Filtrat Rate mL/min > 60 mL/min (>60) Glucose Level 96 mg/dl (70-220) Calcium Level 8.8 mg/dl (8.4-10.2) GADIEL MALDONADO Nov 27, 2018 08:23
== END 2018-11-27 13:48 | disposition home or self-care (01) | DRG 920 ==
LOC: PP2 07:08
PROVIDERS: ADMIT Family Medicine; ATTEND Hospitalist
PROC: 30233N1 Transfusion of Nonautologous Red Blood Cells into Peripheral Vein, Percutaneous Approach (ICD-10-PCS; 2018-11-23)
PROC: 0W9F3ZZ Drainage of Abdominal Wall, Percutaneous Approach (ICD-10-PCS; principal; 2018-11-25)
DX: K91.870 Postprocedural hematoma of a digestive system organ or structure following a digestive system procedure (principal); D62 Acute posthemorrhagic anemia; E66.01 Morbid (severe) obesity due to excess calories; Z68.35 Body mass index [BMI] 35.0-35.9, adult
CPT/HCPCS: 36430; 71045; 74177; 77012; 80048; 80053; 83735; 84100; 85014; 85018; 85025; 85610; 85730; 86850; 86900; 86901; 86920; 87070; 87075; 90686; C1729; C9113; J1170; J2270; J2405; J3480; J7030; J7040; J7042; J7050; P9016; Q9967

== ENCOUNTER → 2018-11-28 | Emergency (ER) | payer SELFPAY ==
[~2018-11-28] VITALS: Ht 157.5 cm; Wt 95.0 kg
[~2018-11-28] MED LIST: CHOL400T10 PO; DOCU-144 PO; LORA5TAB4 PO; ONDA4TAB13 PO; OXYC-279 PO; RANI75TA13 PO
[2018-11-28 16:54] VITALS: BP 140/62; PULSE 104; RESP 20; Ht 157.5 cm; Wt 95.0 kg
== END | disposition left against medical advice (07) ==
LOC: E/R 16:27
DX: Z53.21 Procedure and treatment not carried out due to patient leaving prior to being seen by health care provider (principal)